=== PATIENT | female | born 1960 | race Caucasian/White ===

== ENCOUNTER 2017-04-30 23:11 | Emergency (ER) | payer BC ==
--- NOTE | 2017-04-30 23:32 | EDM.PDOC ---
ED HPI GENERAL MEDICAL PROBLEM - General Chief Complaint: General Stated Complaint: back pain Time Seen by Provider: 04/30/17 23:25 Source of Information: Reports: Patient, Family (), Old Records ([facility] chart/EMR) History Limitations: Reports: No Limitations - History of Present Illness INITIAL COMMENTS - FREE TEXT/NARRATIVE: Patient was brought to the emergency room via private automobile by her for evaluation of persistent refractory bilateral lower lumbar back pain with symptoms initially starting at about 6 AM on 04/28/17. She was seen by her regular provider, Marley Gill PA-C, at [facility] in [place], earlier this afternoon with no additional medications prescribed, however x- rays were ordered as below. Patient did take ibuprofen earlier this morning with no relief with last dose of ibuprofen 600 mg at 22:00 hours and 1 tablet of Ultram at 18:30 hours. She has had worsening back pain-type problems since March with no history of acute injury. Her pain initially started on the left side and now is present bilaterally with some radiation of her left-sided back pain to the left popliteal region. No history of paresthesias, neurological deficits, or other current complaints. No recent history of abdominal pain, heartburn, nausea, diarrhea, melena, gross hematochezia, or any food intolerance , including fatty foods, etc.. The patient also denies any recent fever, cough, wheezing, dyspnea, etc.. The patient did see her chiropractor yesterday, however symptoms have worsened since that time. Onset: Gradual Onset Date: 04/28/17 Onset Time: 06:00 Duration: Constant, Getting Worse Location: Reports: Back, Lower Extremity, Left, Radiates to (As above). 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, Other Medication(s) (As above) lower back pain Pain Score (Numeric/FACES): 10 - Related Data Allergies Allergy/AdvReac Type Severity Reaction Status Date / Time fentanyl Allergy Nausea Verified 04/30/17 23:20 hydrocodone Allergy Nausea Verified 04/30/17 23:20 meperidine HCl [From Demerol] Allergy Anaphylactic Verified 04/30/17 23:20 Shock Sulfa (Sulfonamide Allergy Nausea and Verified 04/30/17 23:20 Antibiotics) Vomiting Home Meds: Home Meds Ibuprofen 600 mg PO Q6H PRN 11/04/14 [History] Cyclobenzaprine [Flexeril] 10 mg PO TID PRN #30 tablet 04/30/17 [Rx] traMADol [Ultram] 50 mg PO Q4HR 04/30/17 [History] Past Medical History HEENT History: Reports: Impaired Vision, Other (See Below) Other HEENT History: Patient wears glasses Cardiovascular History: Reports: Blood Clots/VTE/DVT Respiratory History: Reports: Asthma, COPD, Intubation, Previous Gastrointestinal History: Reports: Cholelithiasis 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 - Past Surgical History GI Surgical History: Reports: Cholecystectomy Female Surgical History: Reports: Hysterectomy, Salpingo-Oophorectomy, Other (See Below) Other Female Surgeries/Procedures: Complete hysterectomy secondary to dysfunctional uterine bleeding and uterine fibroids Musculoskeletal Surgical History: Reports: Knee Replacement, Other (See Below) Other Musculoskeletal Surgeries/Procedures:: Bilateral total knee arthroplasty Social & Family History - Tobacco Use Smoking Status *Q: Never Smoker Smoking Cessation Information Provided To Patient: No Second Hand Smoke Exposure: No Second Hand Smoke Education Provided: No - Alcohol Use Days Per Week of Alcohol Use: 0 - Recreational Drug Use Recreational Drug Use: No - Living Situation & Occupation Living situation: Reports: , with Family 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 ED EXAM, GENERAL - Physical Exam Exam: See Below Exam Limited By: No Limitations General Appearance: Alert, WD/WN, No Apparent Distress, Anxious (Mild) Head: Atraumatic, Normocephalic Neck: Normal Inspection, Supple, Non-Tender, Full Range of Motion. No: Lymphadenopathy (L), Lymphadenopathy (R), Thyromegaly Respiratory/Chest: No Respiratory Distress, Lungs Clear, Normal Breath Sounds, No Accessory Muscle Use, Chest Non-Tender. No: Rales, Pleural Rub, Retractions Cardiovascular: Normal Peripheral Pulses, Regular Rate, Rhythm, No Edema, No Gallop, No JVD, No Murmur, No Rub. No: Gallop/S3, Gallop/S4, Friction Rub Peripheral Pulses: 4+: Radial (L), Radial (R), Dorsalis Pedis (L), Dorsalis Pedis (R) GI/Abdominal: Normal Bowel Sounds, Soft, Non-Tender, No Organomegaly, No Distention, No Abnormal Bruit, No Mass. No: Guarding (Female) Exam: Deferred Rectal (Female) Exam: Deferred Back Exam: Decreased Range of Motion (Secondary to discomfort), Muscle Spasm ( Moderate bilateral lumbar), Paraspinal Tenderness (Moderate bilateral mid lumbar ). No: CVA Tenderness (L), CVA Tenderness (R), Vertebral Tenderness Extremities: Normal Inspection, Normal Range of Motion, Non-Tender, No Pedal Edema, Normal Capillary Refill. No: Jim's Sign Neurological: Alert, Oriented, CN II-XII Intact, Normal Cognition, Normal Gait, Normal Reflexes (Negative Babinski's), No Motor/Sensory Deficits Psychiatric: Anxious (Mild). No: Depressed Mood Skin Exam: Warm, Dry, Intact, Normal Color, No Rash. No: Ecchymosis, Petechiae , Wound/Incision Lymphatic: No Adenopathy Course - Vital Signs Last Recorded V/S: Last Vital Signs Temp 36.4 C 04/30/17 23:14 Pulse 67 04/30/17 23:14 Resp 16 04/30/17 23:14 BP 145/65 H 04/30/17 23:33 Pulse Ox 100 04/30/17 23:14 - Orders/Labs/Meds Orders: Active Orders 24 hr Category Date Time Status Obtain Past Medical Record [OM.PC] Routine Oth 04/30/17 23:34 Active Meds: Medications Discontinued Medications Generic Name Dose Route Start Last Admin Trade Name Freq PRN Reason Stop Dose Admin Diazepam 10 mg 04/30/17 23:33 04/30/17 23:40 Valium IM 04/30/17 23:34 10 mg ONETIME ONE Administration Methylprednisolone Acetate 80 mg 04/30/17 23:33 04/30/17 23:40 Depo-Medrol IM 04/30/17 23:34 80 mg ONETIME ONE Administration - Radiology Interpretation Free Text/Narrative:: X-rays of the lumbar spine, 2 views, which were ordered by the patient's regular provider, Marley Gill PA-C, at [facility] in [place], [facility] today were reviewed with evidence of mild osteoarthritic changes but no fracture, dislocation, etc. 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 in the high 50s with otherwise normal sinus rhythm with average heart rate in the 60s with no other ectopy or arrhythmia Departure - Departure Time of Disposition: 00:05 Disposition: Home, Self-Care 01 Condition: Good Clinical Impression: Bradycardia Low back pain Qualifiers: Chronicity: acute Back pain laterality: bilateral Sciatica presence: with sciatica Sciatica laterality: sciatica of left side Qualified Code(s): M54.42 - Lumbago with sciatica, left side Osteoarthritis Qualifiers: Osteoarthritis location: multiple joints Osteoarthritis type: primary Qualified Code(s): M15.0 - Primary generalized (osteo)arthritis - Discharge Information Prescriptions: Cyclobenzaprine [Flexeril] 10 mg PO TID PRN #30 tablet PRN Reason: Spasms Instructions: Diazepam injection, Methylprednisolone Solution for Injection, Back Pain, Adult, [id number] Referrals: Marley Doss PA-C [Primary Care Provider] - Forms: ED Department Discharge, ED Return to Work/School Form Additional Instructions: 1. Follow up with your regular provider in 10-14 days as needed, if symptoms persist. 2. Tylenol 650 mg by mouth every 4 hours and/or OTC ibuprofen 2-3 tabs by mouth every 6 hours with food as directed./needed. 3. BenGay or equivalent, heating pad, and/or ice packs as directed. 4. Work excuse- See Form 5. Sedation precautions with no driving, etc. for 18 hours because of emergency room medications. 6. Dry mouth, confusion, sedation precautions with Flexeril as discussed - Problem List & Annotations (1) Low back pain SNOMED Code(s): 162238877 Code(s): M54.5 - LOW BACK PAIN Status: Acute Priority: High Current Visit: Yes Onset Date: ~04/28/17 Annotation/Comment:: Work excuse provided. Symptomatic relief as per discharge instructions. Continue to observe symptoms closely by her regular provider with consideration of further workup including CT versus MRI of the lumbar spine, physical therapy referral, etc. depending on her clinical course. IM Depo-Medrol and IM diazepam given in the emergency room with initiation of Flexeril therapy in the a.m. Sedation, precautions given Qualifiers: Chronicity: acute Back pain laterality: bilateral Sciatica presence: with sciatica Sciatica laterality: sciatica of left side Qualified Code(s): M54.42 - Lumbago with sciatica, left side (2) Osteoarthritis SNOMED Code(s): 437755787 Code(s): M19.90 - UNSPECIFIED OSTEOARTHRITIS, UNSPECIFIED SITE Status: Chronic Priority: Medium Current Visit: Yes Annotation/Comment:: Otherwise stable by history Qualifiers: Osteoarthritis location: multiple joints Osteoarthritis type: primary Qualified Code(s): M15.0 - Primary generalized (osteo)arthritis (3) Bradycardia SNOMED Code(s): 77455984 Code(s): R00.1 - BRADYCARDIA, UNSPECIFIED Status: Acute Priority: Medium Current Visit: Yes Onset Date: 05/01/17 Annotation/Comment:: Newly diagnosed with no current beta holly, etc. therapy. Nonsymptomatic. Observe for now - Problem List Review Problem List Initiated/Reviewed/Updated: Yes - My Orders Last 24 Hours: My Active Orders 04/30/17 23:34 Obtain Past Medical Record [OM.PC] Routine - Assessment/Plan Last 24 Hours: My Active Orders 04/30/17 23:34 Obtain Past Medical Record [OM.PC] Routine Assessment:: As above Plan: As above. Extensive precautions were given to the patient and her , who are in agreement with the treatment plan. See Patient Instructions for further treatment and plan.
[2017-04-30] MEDS ORDERED: methylPREDNISolone Acetate 80 MG/ML SDV IM ONE (23:33)
[2017-04-30 23:52] VITALS: BP 145/65
== END 2017-05-01 00:05 | disposition home or self-care (01) ==
LOC: LL.ED 23:11
DX: M54.42 Lumbago with sciatica, left side (principal); R00.1 Bradycardia, unspecified; M15.0 Primary generalized (osteo)arthritis; H54.7 Unspecified visual loss; J44.9 Chronic obstructive pulmonary disease, unspecified; Z90.49 Acquired absence of other specified parts of digestive tract; Z88.8 Allergy status to other drugs, medicaments and biological substances; Z88.5 Allergy status to narcotic agent; Z88.2 Allergy status to sulfonamides; Z90.710 Acquired absence of both cervix and uterus
CPT/HCPCS: 96372; 99283; J1040; J3360

== ENCOUNTER 2017-05-06 15:26 | Emergency (ER) | payer BC ==
--- NOTE | 2017-05-06 15:35 | EDM.PDOC ---
ED HPI GENERAL MEDICAL PROBLEM - General Chief Complaint: Back Pain or Injury Stated Complaint: Back pain/Leg Pain Time Seen by Provider: 05/06/17 15:30 Source of Information: Reports: Patient History Limitations: Reports: No Limitations - History of Present Illness INITIAL COMMENTS - FREE TEXT/NARRATIVE: Patient is a 57-year-old who seen with chief complaint of lower back pain radiating down her lleft leg states she fell off a ladder back in September patient's had MRI Onset: Gradual Duration: Chronic, Getting Worse Location: Reports: Back Quality: Reports: Sharp, Other (Constant) Severity: Moderate Improves with: Reports: None Worsens with: Reports: Movement Context: Reports: Trauma Associated Symptoms: Reports: No Other Symptoms Lower Back Pain Score (Numeric/FACES): 6 - Related Data Allergies Allergy/AdvReac Type Severity Reaction Status Date / Time fentanyl Allergy Airway Verified 05/06/17 15:56 Tightness hydrocodone Allergy Nausea Verified 05/06/17 15:39 meperidine HCl [From Demerol] Allergy Anaphylactic Verified 05/06/17 15:39 Shock Sulfa (Sulfonamide Allergy Nausea and Verified 05/06/17 15:39 Antibiotics) Vomiting Home Meds: Home Meds Ibuprofen 600 mg PO Q6H PRN 11/04/14 [History] traMADol [Ultram] 50 mg PO Q4HR 04/30/17 [History] Acetaminophen [Acetaminophen Extra Strength] 1,000 mg PO Q6HR PRN 05/06/17 [ History] Cyclobenzaprine [Flexeril] 5 mg PO TID PRN 05/06/17 [History] Past Medical History HEENT History: Reports: Impaired Vision, Other (See Below) Other HEENT History: Patient wears glasses Cardiovascular History: Reports: Blood Clots/VTE/DVT Respiratory History: Reports: Asthma, COPD, Intubation, Previous Gastrointestinal History: Reports: Cholelithiasis 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 - Past Surgical History GI Surgical History: Reports: Cholecystectomy Female Surgical History: Reports: Hysterectomy, Salpingo-Oophorectomy, Other (See Below) Other Female Surgeries/Procedures: Complete hysterectomy secondary to dysfunctional uterine bleeding and uterine fibroids Musculoskeletal Surgical History: Reports: Knee Replacement, Other (See Below) Other Musculoskeletal Surgeries/Procedures:: Bilateral total knee arthroplasty Social & Family History - Tobacco Use Smoking Status *Q: Never Smoker Second Hand Smoke Exposure: No - Caffeine Use Caffeine Use: Reports: None - Alcohol Use Days Per Week of Alcohol Use: 0 - Recreational Drug Use Recreational Drug Use: No - Living Situation & Occupation Living situation: Reports: , with Family 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[employer], 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 GENERAL - Review of Systems Review Of Systems: See Below Constitutional: Reports: Other (Constant lower back pain) HEENT: Reports: No Symptoms Respiratory: Reports: No Symptoms Cardiovascular: Reports: No Symptoms Endocrine: Reports: No Symptoms GI/Abdominal: Reports: No Symptoms : Reports: No Symptoms Musculoskeletal: Reports: No Symptoms Skin: Reports: No Symptoms Neurological: Reports: Difficulty Walking Psychiatric: Reports: No Symptoms ED EXAM, GENERAL - Physical Exam Exam: See Below Exam Limited By: No Limitations General Appearance: Alert, WD/WN, No Apparent Distress, Moderate Distress Ears: Normal External Exam, Normal Canal, Hearing Grossly Normal, Normal TMs Ear Exam: Bilateral Ear: Auricle Normal, Canal Normal, TM normal Nose: Normal Inspection, Normal Mucosa, No Blood Throat/Mouth: Normal Inspection, Normal Lips, Normal Teeth, Normal Gums, Normal Oropharynx, Normal Voice, No Airway Compromise Head: Atraumatic, Normocephalic Neck: Normal Inspection, Supple, Non-Tender, Full Range of Motion Respiratory/Chest: No Respiratory Distress, Lungs Clear, Normal Breath Sounds, No Accessory Muscle Use, Chest Non-Tender Cardiovascular: Normal Peripheral Pulses, Regular Rate, Rhythm, No Edema, No Gallop, No JVD, No Murmur, No Rub GI/Abdominal: Normal Bowel Sounds, Soft, Non-Tender, No Organomegaly, No Distention, No Abnormal Bruit, No Mass Back Exam: Decreased Range of Motion, Other (Radiating down left leg) Extremities: Normal Inspection, Normal Range of Motion, Non-Tender, No Pedal Edema, Normal Capillary Refill, Leg Pain. No: Jim's Sign Neurological: Alert, Oriented, CN II-XII Intact, Normal Cognition, Normal Gait, Normal Reflexes, No Motor/Sensory Deficits Psychiatric: Normal Affect, Tearful, Other (Secondary to low back pain) Skin Exam: Warm, Dry, Intact, Normal Color, No Rash Lymphatic: No Adenopathy Course - Vital Signs Last Recorded V/S: Last Vital Signs Temp 98.6 F 05/06/17 15:42 Pulse 70 05/06/17 15:42 Resp 20 05/06/17 15:42 BP 147/82 H 05/06/17 15:42 Pulse Ox 99 05/06/17 15:42 - Orders/Labs/Meds Orders: Active Orders 24 hr Category Date Time Status Communication Order [RC] PER UNIT ROUTINE Care 05/06/17 15:52 Active Labs: Laboratory Tests 05/06/17 05/06/17 05/06/17 Range/Units 15:40 15:40 15:40 WBC 10.0 (4.0-10.2) K/uL RBC 4.90 (3.77-5.09) M/uL Hgb 14.9 (11.7-15.5) g/dL Hct 42.0 (34.0-46.0) % MCV 85.7 (84.0-98.0) fL MCH 30.4 (28.2-33.3) pg MCHC 35.5 (31.7-36.0) g/dL RDW 13.4 (11.2-14.1) % Plt Count 278 (150-350) K/uL Neut % (Auto) 64.1 (45.0-80.0) % Lymph % (Auto) 26.8 (10.0-50.0) % [place] % (Auto) 7.9 (2.0-14.0) % Eos % (Auto) 0.8 (0.0-5.0) % Baso % (Auto) 0.4 (0.0-2.0) % Neut # (Auto) 6.39 (1.40-7.00) K/uL Lymph # (Auto) 2.67 (0.50-3.50) K/uL [place] # (Auto) 0.79 (0.00-1.00) K/uL Eos # (Auto) 0.08 (0.00-0.50) K/uL Baso # (Auto) 0.04 (0.00-0.20) K/uL D-Dimer, Quantitative 210 (0-400) ng/mL Sodium 140 (136-145) mmol/L Potassium 4.3 (3.5-5.1) mmol/L Chloride 103 (98-107) mmol/L Carbon Dioxide 26.8 (21.0-32.0) mmol/L BUN 23 H (7-18) mg/dL Creatinine 0.94 (0.51-1.17) mg/dL Est Cr Clr Drug Dosing 58.39 mL/min Estimated GFR (MDRD) > 60 mL/min Glucose 89 (74-106) mg/dL Calcium 10.1 (8.5-10.1) mg/dL Meds: Medications Discontinued Medications Generic Name Dose Route Start Last Admin Trade Name Freq PRN Reason Stop Dose Admin Hydrocodone Bitart/Acetaminophen 1 tab 05/06/17 15:55 05/06/17 16:09 [place] 325-5 Mg PO 05/06/17 15:56 1 tab ONETIME ONE Administration Diazepam 10 mg 05/06/17 15:53 05/06/17 16:10 Valium IM 05/06/17 15:54 10 mg ONETIME ONE Administration Ondansetron HCl 4 mg 05/06/17 15:51 05/06/17 16:09 Zofran Odt PO 05/06/17 15:52 4 mg ONETIME ONE Administration Sodium Chloride 10 ml 05/06/17 16:00 Saline Flush FLUSH ASDIRECTED PRN Keep Vein Open Departure - Departure Time of Disposition: 17:11 Disposition: Home, Self-Care 01 Clinical Impression: Lumbar degenerative disc disease, Severe lumbar pain - Discharge Information Instructions: Diazepam injection Referrals: Marley Doss PA-C [Primary Care Provider] - Forms: ED Department Discharge Additional Instructions: Dr. Barber's office will notify you of date and time of appointment for back injections - My Orders Last 24 Hours: My Active Orders 05/06/17 15:52 Communication Order [RC] PER UNIT ROUTINE - Assessment/Plan Last 24 Hours: My Active Orders 05/06/17 15:52 Communication Order [RC] PER UNIT ROUTINE Plan: Referred to Dr. Banerjee for back injections
[2017-05-06 15:44] VITALS: BP 147/82
[2017-05-06] MEDS ORDERED: Ondansetron 4 MG Tab.DIS PO ONE (15:51)
[2017-05-06] MEDS ORDERED: Acetaminophen/HYDROcodone 325-5 MG Tab PO ONE (15:55)
[2017-05-06] MEDS ORDERED: Sodium Chloride 0.9% 10 ML Syringe FLUSH PRN (16:00)
[2017-05-06 16:24] LABS: CHLORIDE,CL 103 mmol/L (98-107); SODIUM,NA 140 mmol/L (136-145)
== END 2017-05-06 17:11 | disposition home or self-care (01) ==
LOC: LL.ED 15:26
DX: M51.36 Other intervertebral disc degeneration, lumbar region (principal); M19.90 Unspecified osteoarthritis, unspecified site; J44.9 Chronic obstructive pulmonary disease, unspecified; Z86.79 Personal history of other diseases of the circulatory system; Z86.2 Personal history of diseases of the blood and blood-forming organs and certain disorders involving the immune mechanism; Z90.49 Acquired absence of other specified parts of digestive tract; Z90.710 Acquired absence of both cervix and uterus; Z96.653 Presence of artificial knee joint, bilateral; Z86.718 Personal history of other venous thrombosis and embolism; Z88.1 Allergy status to other antibiotic agents; Z88.2 Allergy status to sulfonamides; Z88.5 Allergy status to narcotic agent; Z88.6 Allergy status to analgesic agent
CPT/HCPCS: 36415; 80048; 85025; 85379; 96372; 99284; A9270; J3360

== ENCOUNTER 2017-10-11 08:55 | Emergency (ER) | payer BC ==
[2017-10-11 09:07] VITALS: BP 129/69
[2017-10-11] MEDS ORDERED: GI Cocktail Oral Solution 30 ML PO ONE (09:23)
[2017-10-11 09:52] LABS: CHLORIDE,CL 105 mmol/L (98-107); SODIUM,NA 141 mmol/L (136-145)
--- NOTE | 2017-10-11 12:02 | EDM.PDOC ---
ED HPI GENERAL MEDICAL PROBLEM - General Chief Complaint: General Stated Complaint: Stomach pain, back pain Time Seen by Provider: 10/11/17 09:21 Source of Information: Reports: Patient History Limitations: Reports: No Limitations - History of Present Illness INITIAL COMMENTS - FREE TEXT/NARRATIVE: Patient here with complaint of abdominal and back pain. Pain started two days ago. Noticed increased frequency of stool on . This stopped on the second day (Friday). Had some hot flashes and chills yesterday (Friday). Has not had that today. Nausea present. No emesis. No bloody stools/constipation/ diarrhea today. Hx of diverticulosis/diverticulitis and kidney stones. Says that this does NOT feel like either of those. No URI complaints. Denies UTI symptoms. Pain comes/goes, sometimes improves after eating. Hard to sleep at night, sleeps propped upwards for comfort. Recent huge increase in stress as daughter was murdered recently. No other reported changes. Nothing else seems to trigger or improve the pain when it is present. 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 Abdomen Pain Score (Numeric/FACES): 8 - Related Data Allergies Allergy/AdvReac Type Severity Reaction Status Date / Time fentanyl Allergy Airway Verified 10/11/17 12:00 Tightness hydrocodone Allergy Nausea Verified 10/11/17 12:00 meperidine HCl [From Demerol] Allergy Anaphylactic Verified 10/11/17 12:00 Shock Sulfa (Sulfonamide Allergy Nausea and Verified 10/11/17 12:00 Antibiotics) Vomiting Home Meds: Home Meds Ibuprofen 600 mg PO Q6H PRN 11/04/14 [History] Acetaminophen [Acetaminophen Extra Strength] 1,000 mg PO Q6HR PRN 05/06/17 [ History] Calcium Carbonate [Tums] 300 mg PO ASDIRECTED PRN 10/11/17 [History] LORazepam 0.5 mg PO BEDTIME PRN 10/11/17 [History] Omeprazole [priLOSEC OTC] 20 mg PO DAILY PRN 10/11/17 [History] Past Medical History HEENT History: Reports: Impaired Vision, Other (See Below) Other HEENT History: Patient wears glasses Cardiovascular History: Reports: Blood Clots/VTE/DVT Respiratory History: Reports: Asthma, COPD, Intubation, Previous Gastrointestinal History: Reports: Cholelithiasis 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: Reports: Dysfunctional Uterine Bleeding, Fibroids Musculoskeletal History: Reports: Arthritis, Back Pain, Chronic, Neck Pain, Chronic, Osteoarthritis, Other (See Below) Other Musculoskeletal History: Sarcoidosis Hematologic History: Reports: Anemia, Other (See Below) Other Hematologic History: 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 - Past Surgical History GI Surgical History: Reports: Cholecystectomy Female Surgical History: Reports: Hysterectomy, Salpingo-Oophorectomy, Other (See Below) Other Female Surgeries/Procedures: Complete hysterectomy secondary to dysfunctional uterine bleeding and uterine fibroids Musculoskeletal Surgical History: Reports: Knee Replacement, Other (See Below) Other Musculoskeletal Surgeries/Procedures:: Bilateral total knee arthroplasty Social & Family History - Tobacco Use Smoking Status *Q: Never Smoker Second Hand Smoke Exposure: No - Caffeine Use Caffeine Use: Reports: None - Alcohol Use Days Per Week of Alcohol Use: 0 - Recreational Drug Use Recreational Drug Use: No - Living Situation & Occupation Living situation: Reports: , with Family 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 Denies: Fever , Weakness, Fatigue, Diaphoresis, Weight Loss, Weight Gain HEENT: Reports: No Symptoms Respiratory: Reports: No Symptoms Cardiovascular: Reports: No Symptoms. Denies: Chest Pain, Dyspnea on Exertion, Lightheadedness GI/Abdominal: Reports: Abdominal Pain, Diarrhea (looser stools/more frequent two days ago but not overt diarrhea), Nausea. Denies: Black Stool, Bloody Stool , Constipation, Distension, Hematemesis, Hematochezia, Melena, Vomiting : Reports: No Symptoms Musculoskeletal: Reports: No Symptoms Skin: Reports: No Symptoms Neurological: Reports: No Symptoms Psychiatric: Reports: No Symptoms Hematologic/Lymphatic: Reports: No Symptoms ED EXAM, GENERAL - Physical Exam Exam: See Below Exam Limited By: No Limitations General Appearance: Alert, WD/WN, No Apparent Distress Eye Exam: Bilateral Eye: EOMI, Normal Inspection Ears: Normal External Exam, Normal Canal, Hearing Grossly Normal Nose: Normal Inspection Throat/Mouth: Normal Inspection, Normal Lips, Normal Oropharynx, Normal Voice, No Airway Compromise Head: Atraumatic, Normocephalic Neck: Normal Inspection, Supple, Non-Tender, Full Range of Motion. No: Lymphadenopathy (L), Lymphadenopathy (R) Respiratory/Chest: No Respiratory Distress, Lungs Clear, Normal Breath Sounds, No Accessory Muscle Use, Chest Non-Tender Cardiovascular: Normal Peripheral Pulses, Regular Rate, Rhythm, No Edema, No Murmur Peripheral Pulses: 2+: Radial (L), Radial (R) GI/Abdominal: Normal Bowel Sounds, Soft, No Distention, Tender (diffusely, more so upper mid abdomen). No: Guarding, Rigid, Rebound (Female) Exam: Deferred Rectal (Female) Exam: Deferred Back Exam: Normal Inspection. No: CVA Tenderness (L), CVA Tenderness (R), Muscle Spasm, Paraspinal Tenderness, Vertebral Tenderness Extremities: Normal Inspection, Normal Range of Motion, Non-Tender, No Pedal Edema, Normal Capillary Refill Neurological: Alert, Oriented, Normal Cognition, Normal Gait, No Motor/Sensory Deficits Psychiatric: Normal Affect, Normal Mood Skin Exam: Warm, Dry, Intact, Normal Color EKG INTERPRETATION EKG Date: 10/11/17 Time: 09:49 Rhythm: Other (sinus bradycardia) Rate (Beats/Min): 55 [place]: Normal P-Wave: Present QRS: Normal ST-T: Normal QT: Normal Comparison: NA - No Prior EKG EKG Interpretation Comments: Has been noted to have heart rate in 50s during past visits. Flipped T in V3 Course - Vital Signs Last Recorded V/S: Last Vital Signs Temp 36.4 C 10/11/17 08:56 Pulse 59 L 10/11/17 08:56 Resp 16 10/11/17 08:56 BP 129/69 10/11/17 08:56 Pulse Ox 100 10/11/17 08:56 - Orders/Labs/Meds Orders: Active Orders 24 hr Category Date Time Status EKG Documentation Completion [RC] ASDIRECTED Care 10/11/17 09:22 Active Abdomen Pelvis wo Cont [CT] Stat Exams 10/11/17 10:02 Taken H PYLORI STOOL ANTIGEN [MREF] Stat Lab 10/11/17 11:19 Ordered Labs: Laboratory Tests 10/11/17 10/11/17 10/11/17 Range/Units 09:30 09:30 10:10 WBC 5.7 (4.0-10.2) K/uL RBC 4.68 (3.77-5.09) M/uL Hgb 14.4 (11.7-15.5) g/dL Hct 40.7 (34.0-46.0) % MCV 87.0 (84.0-98.0) fL MCH 30.8 (28.2-33.3) pg MCHC 35.4 (31.7-36.0) g/dL RDW 13.5 (11.2-14.1) % Plt Count 225 (150-350) K/uL Neut % (Auto) 56.3 (45.0-80.0) % Lymph % (Auto) 31.9 (10.0-50.0) % [place] % (Auto) 7.8 (2.0-14.0) % Eos % (Auto) 3.3 (0.0-5.0) % Baso % (Auto) 0.7 (0.0-2.0) % Neut # (Auto) 3.23 (1.40-7.00) K/uL Lymph # (Auto) 1.83 (0.50-3.50) K/uL [place] # (Auto) 0.45 (0.00-1.00) K/uL Eos # (Auto) 0.19 (0.00-0.50) K/uL Baso # (Auto) 0.04 (0.00-0.20) K/uL Sodium 141 (136-145) mmol/L Potassium 3.8 (3.5-5.1) mmol/L Chloride 105 (98-107) mmol/L Carbon Dioxide 27.3 (21.0-32.0) mmol/L BUN 14 (7-18) mg/dL Creatinine 0.87 (0.51-1.17) mg/dL Est Cr Clr Drug Dosing 57.79 mL/min Estimated GFR (MDRD) > 60 mL/min Glucose 99 (74-106) mg/dL Calcium 9.2 (8.5-10.1) mg/dL Total Bilirubin 1.3 H (0.2-1.0) mg/dL AST 24 (15-37) U/L ALT 40 (12-78) U/L Alkaline Phosphatase 95 (46-116) IU/L Troponin I 0.000 (0.000-0.056) ng/mL Total Protein 7.3 (6.4-8.2) g/dL Albumin 4.1 (3.4-5.0) g/dL Specimen Type Urinvoid Urine Color Yellow Urine Appearance Clear Urine pH 7.5 (5.0-9.0) Ur Specific [place] 1.015 (1.005-1.030) Urine Protein Negative (NEGATIVE) mg/dL Urine Glucose (UA) Negative (NEGATIVE) mg/dL Urine Ketones Trace H (NEGATIVE) mg/dL Urine Occult Blood Moderate H (NEGATIVE) Urine Nitrite Negative (NEGATIVE) Urine Bilirubin Negative (NEGATIVE) Urine Urobilinogen 1.0 (0.2-1.0) E.U./dL Ur Leukocyte Esterase Negative (NEGATIVE) Urine RBC 5-10 H /HPF Urine WBC 0-5 /HPF Ur Epithelial Cells Moderate H /LPF Urine Bacteria Few (NONE TO FEW) /HPF Meds: Medications Discontinued Medications Generic Name Dose Route Start Last Admin Trade Name Freq PRN Reason Stop Dose Admin Al Hydroxide/Mg Hydroxide 30 ml 10/11/17 09:23 10/11/17 09:37 Gi Cocktail PO 10/11/17 09:24 30 ml ONETIME ONE Administration - Radiology Interpretation Free Text/Narrative:: CT exam did not show obstructions/stones/diverticulitis. CT Results Date: 10/11/17 CT Results Time: 11:37 (patient has kidney stones in both kidneys. No sign of stone in ureter or obstruction of ureter. Diverticulosis present but no diverticulitis.) - Re-Assessments/Exams Free Text/Narrative Re-Assessment/Exam: 10/11/17 14:26 CT and labs overall unremarkable. Patient did have improvement of epigastric discomfort with GI cocktail. Will recommend HPylorie testing as well as routine guiac stool testing. Suspect gastritis/GI source of pain. Recent increased anxiety with of daughter likely contributing. Cannot rule out possible ulcer being present. May need referral to GI for further evaluation. Consider viral cause given looser stools two days ago as well as chills yesterday. Kidney stone/diverticulosis felt unlikely at this time. Conservative treatment for now. Will increase patient's Prilosec to twice daily. Discussed elimination diet to avoid foods that most commonly contribute to inflammation and GI distress. Patient is to look for other symptoms developing that may suggest this is viral gastroenteritis. She is to follow up as needed pending course of symptoms. Departure - Departure Time of Disposition: 11:59 Disposition: Home, Self-Care 01 Condition: Good Clinical Impression: Abdominal pain Qualifiers: Abdominal location: generalized Qualified Code(s): R10.84 - Generalized abdominal pain - Discharge Information Instructions: Heartburn, [id number] Referrals: Marley Doss PA-C [Primary Care Provider] - Forms: ED Department Discharge Additional Instructions: Take 20mg Prilosec twice daily for the next 2 weeks. See if symptoms change or if they improve/worsen. Follow up as needed depending on course. Stool samples for Hpylorie and occult blood screens. Follow up with primary provider next week. - My Orders Last 24 Hours: My Active Orders 10/11/17 09:22 EKG Documentation Completion [RC] ASDIRECTED 10/11/17 10:02 Abdomen Pelvis wo Cont [CT] Stat 10/11/17 11:19 H PYLORI STOOL ANTIGEN [MREF] Stat - Assessment/Plan Last 24 Hours: My Active Orders 10/11/17 09:22 EKG Documentation Completion [RC] ASDIRECTED 10/11/17 10:02 Abdomen Pelvis wo Cont [CT] Stat 10/11/17 11:19 H PYLORI STOOL ANTIGEN [MREF] Stat
== END 2017-10-11 12:13 | disposition home or self-care (01) ==
LOC: LL.ED 08:55
DX: R10.84 Generalized abdominal pain (principal); N20.0 Calculus of kidney; Z88.5 Allergy status to narcotic agent; Z88.8 Allergy status to other drugs, medicaments and biological substances; Z88.2 Allergy status to sulfonamides; Z79.899 Other long term (current) drug therapy; Z90.49 Acquired absence of other specified parts of digestive tract; Z90.710 Acquired absence of both cervix and uterus
CPT/HCPCS: 36415; 74176; 80053; 81001; 84484; 85025; 93005; 99284; A9270

== ENCOUNTER 2018-03-10 07:58 | Emergency (ER) | payer BC ==
[2018-03-10 08:20] VITALS: BP 145/79
[2018-03-10] MEDS ORDERED: Pantoprazole 40 MG Vial IVPUSH ONE (08:31)
[2018-03-10] MEDS ORDERED: Famotidine 20 MG/2 ML SDV IVPUSH ONE (08:31)
[2018-03-10] MEDS ORDERED: Sodium Chloride 0.9% 10 ML Syringe FLUSH PRN (08:31)
[2018-03-10] MEDS ORDERED: Lactated Ringers 1,000 ML IV ONE (08:31)
[2018-03-10] MEDS ORDERED: Ondansetron 4 MG/2 ML SDV IVPUSH ONE (08:31)
--- NOTE | 2018-03-10 08:31 | EDM.PDOC ---
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 08:43 CULTURE BLOOD [BC] Stat 03/10/18 08:54 Abdomen Pelvis wo Cont [CT] Stat 03/10/18 09:00 CULTURE URINE [RM] Stat UA W/MICROSCOPIC [URIN] Stat 03/10/18 09:14 CULTURE BLOOD [BC] Stat Assessment:: As above Plan: As above. Extensive precautions were given to the patient, who is in agreement with the treatment plan. See Patient Instructions for further treatment and plan.
[2018-03-10] MEDS ORDERED: Ketorolac 30 MG/ML SDV IVPUSH ONE (08:34)
[2018-03-10] MEDS ORDERED: Tamsulosin 0.4 MG Cap.ER PO ONE (08:35)
[2018-03-10 09:16] LABS: CHLORIDE,CL 105 mmol/L (98-107); SODIUM,NA 140 mmol/L (136-145)
== END 2018-03-10 10:39 | disposition home or self-care (01) ==
LOC: LL.ED 07:58
DX: K57.92 Diverticulitis of intestine, part unspecified, without perforation or abscess without bleeding (principal); D86.9 Sarcoidosis, unspecified; K21.9 Gastro-esophageal reflux disease without esophagitis; F41.8 Other specified anxiety disorders; N21.0 Calculus in bladder; M15.0 Primary generalized (osteo)arthritis; J44.9 Chronic obstructive pulmonary disease, unspecified; Z88.5 Allergy status to narcotic agent; Z88.8 Allergy status to other drugs, medicaments and biological substances; Z88.2 Allergy status to sulfonamides
CPT/HCPCS: 36415; 74176; 80053; 81001; 82150; 83605; 83690; 83735; 84550; 85025; 85610; 85730; 87040; 87086; 96361; 96374; 96375; 99285; A9270; C9113; J1885; J2405; J3490; J7050; J7120

== ENCOUNTER 2018-05-13 12:15 | Emergency (ER) | payer BC, OTHER ==
[2018-05-13] MEDS ORDERED: Bupivacaine 0.5% 10 ML SDV INJECT ONE (12:51)
[2018-05-13] MEDS ORDERED: Ketorolac 10 MG Tab PO ONE (13:05)
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
[2018-05-13 13:28] VITALS: BP 131/82
== END 2018-05-13 13:40 | disposition home or self-care (01) ==
LOC: LL.ED 12:15
DX: S60.042A Contusion of left ring finger without damage to nail, initial encounter (principal); Z88.8 Allergy status to other drugs, medicaments and biological substances; Z88.5 Allergy status to narcotic agent; Z88.2 Allergy status to sulfonamides; W23.1XXA Caught, crushed, jammed, or pinched between stationary objects, initial encounter; Y99.0 Civilian activity done for income or pay
CPT/HCPCS: 64450; 73140-F3; 99283; A9270-GY; J3490

== ENCOUNTER 2021-03-08 20:25 | Emergency (ER) | payer BC ==
[2021-03-08 20:40] VITALS: PULSE 71
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
[2021-03-08 21:11] LABS: ANION GAP 9.2 meq/L (7-15)
[2021-03-08] MEDS: Ciprofloxacin 500 MG Tab PO ONE (21:27)
[2021-03-08] MEDS: metroNIDAZOLE 500 MG Tab PO ONE (21:27)
[2021-03-08] MEDS: Dicyclomine 20 MG Tab PO ONE (21:27)
[2021-03-08 23:03] VITALS: BP 129/59
== END 2021-03-08 21:58 | disposition home or self-care (01) ==
LOC: LL.ED 20:25
DX: R10.32 Left lower quadrant pain (principal); R10.84 Generalized abdominal pain; I25.10 Atherosclerotic heart disease of native coronary artery without angina pectoris; J44.9 Chronic obstructive pulmonary disease, unspecified; Z88.2 Allergy status to sulfonamides; Z91.018 Allergy to other foods; Z88.6 Allergy status to analgesic agent; Z88.8 Allergy status to other drugs, medicaments and biological substances; Z68.30 Body mass index [BMI] 30.0-30.9, adult
CPT/HCPCS: 36415; 80048; 85025; 86140; 99284; A9270-GY

== ENCOUNTER 2021-08-20 22:35 | Emergency (ER) | payer BC ==
[2021-08-20] MEDS ORDERED: Sodium Chloride 0.9% 10 ML Syringe FLUSH PRN (22:43)
[2021-08-20] MEDS ORDERED: Nitroglycerin 0.4 MG Tab.SL SL ONE (22:45)
[2021-08-20 23:06] LABS: PTT,PARTIAL THROMBOPLSTIN TIME 28.8 SEC (23.6-29.8)
[2021-08-20 23:12] LABS: CHLORIDE,CL 108 mmol/L (98-107); SODIUM,NA 145 mmol/L (136-145)
[2021-08-20 23:16] LABS: ANION GAP 14.5 meq/L (7-15)
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
[2021-08-21 02:09] VITALS: BP 145/69; PULSE 76
== END 2021-08-20 23:32 | disposition home or self-care (01) ==
LOC: LL.ED 22:35
DX: R07.89 Other chest pain (principal); I25.10 Atherosclerotic heart disease of native coronary artery without angina pectoris; J44.9 Chronic obstructive pulmonary disease, unspecified; Z88.2 Allergy status to sulfonamides; Z88.5 Allergy status to narcotic agent; Z91.018 Allergy to other foods; Z88.8 Allergy status to other drugs, medicaments and biological substances
CPT/HCPCS: 36415; 71045; 80053; 83735; 83880; 84100; 84484; 85025; 85379; 85610; 85730; 86140; 93005; 99285; A9270; 93010; 99284

== ENCOUNTER 2021-09-17 19:08 | Emergency (ER) | payer BC ==
[2021-09-17 19:16] VITALS: BP 173/90; PULSE 72
== END 2021-09-17 20:25 | disposition home or self-care (01) ==
LOC: LL.ED 19:08
DX: S61.213A Laceration without foreign body of left middle finger without damage to nail, initial encounter (principal); I25.10 Atherosclerotic heart disease of native coronary artery without angina pectoris; J44.9 Chronic obstructive pulmonary disease, unspecified; E66.9 Obesity, unspecified; Z68.34 Body mass index [BMI] 34.0-34.9, adult; Z88.6 Allergy status to analgesic agent; Z88.5 Allergy status to narcotic agent; Z91.018 Allergy to other foods; Z88.2 Allergy status to sulfonamides; Z88.8 Allergy status to other drugs, medicaments and biological substances; Z79.899 Other long term (current) drug therapy; W26.0XXA Contact with knife, initial encounter
CPT/HCPCS: 12001; 99282-25; 99283

== ENCOUNTER 2022-07-29 18:49 | Emergency (ER) | payer BC ==
[2022-07-29 19:43] LABS: ANION GAP 7.8 meq/L (7-15); CHLORIDE,CL 103 mmol/L (98-107); SODIUM,NA 140 mmol/L (136-145)
[2022-07-29 19:45] LABS: ESTIMATED GFR 59 mL/min (>=60)
[2022-07-29 19:48] VITALS: PULSE 74
[2022-07-29 20:26] LABS: CORONAVIRUS COVID-19 NAA NEGATIVE (NEGATIVE); RESPIRATORY SYNCYTIAL VIR NAA NEGATIVE (NEGATIVE)
[2022-07-29] MEDS: Iopamidol 612 MG/ML 100 ML Bottle ONE (21:11)
[2022-07-29] MEDS: Sodium Chloride 0.9% 1,000 ML IV ONE (21:32)
[2022-07-29] MEDS ORDERED: Amoxicillin/Clavulanate K 875-125 MG Tab PO ONE (22:32)
[2022-07-30 04:03] VITALS: BP 135/72
== END 2022-07-29 22:35 | disposition home or self-care (01) ==
LOC: LL.ED 18:49
DX: K57.32 Diverticulitis of large intestine without perforation or abscess without bleeding (principal); I25.10 Atherosclerotic heart disease of native coronary artery without angina pectoris; J44.9 Chronic obstructive pulmonary disease, unspecified; K21.9 Gastro-esophageal reflux disease without esophagitis; M19.90 Unspecified osteoarthritis, unspecified site; E66.9 Obesity, unspecified; Z88.2 Allergy status to sulfonamides; Z88.8 Allergy status to other drugs, medicaments and biological substances; Z88.5 Allergy status to narcotic agent; Z88.6 Allergy status to analgesic agent; Z91.018 Allergy to other foods; Z79.899 Other long term (current) drug therapy; Z20.822 Contact with and (suspected) exposure to COVID-19
CPT/HCPCS: 0241U; 36415; 74177; 80053; 81001; 83605; 83735; 85025; 96360; 99284; J7030; Q9967

== ENCOUNTER 2024-02-13 17:48 | Emergency (ER) | payer BC ==
[2024-02-13 17:51] VITALS: BP 142/80; PULSE 89
== END 2024-02-13 19:01 | disposition home or self-care (01) ==
LOC: LL.ED 17:48
DX: S93.401A Sprain of unspecified ligament of right ankle, initial encounter (principal); K21.9 Gastro-esophageal reflux disease without esophagitis; E66.9 Obesity, unspecified; Z90.49 Acquired absence of other specified parts of digestive tract; Z90.710 Acquired absence of both cervix and uterus; Z79.899 Other long term (current) drug therapy; Z88.8 Allergy status to other drugs, medicaments and biological substances; Z91.018 Allergy to other foods; Z88.2 Allergy status to sulfonamides; Z88.5 Allergy status to narcotic agent; W19.XXXA Unspecified fall, initial encounter
CPT/HCPCS: 73590-RT; 99283

== ENCOUNTER 2024-09-20 21:14 | Emergency (ER) | payer BC ==
[2024-09-20 21:31] VITALS: BP 156/97; PULSE 97
[2024-09-20 21:47] LABS: BASOPHILS ABSOLUTE AUTO 0.05 K/uL (0.00-0.20); BASOPHILS PERCENT AUTO 0.5 % (0.0-2.0); EOSINOPHILS ABSOLUTE AUTO 0.32 K/uL (0.00-0.50); EOSINOPHILS PERCENT AUTO 2.9 % (0.0-5.0); HEMATOCRIT 43.5 % (34.0-46.0); HEMOGLOBIN 15.4 g/dL (11.7-15.5); IMMATURE GRAN ABSOLUTE AUTO 0.04 10^3/uL (0.00-0.04); IMMATURE GRAN PERCENT AUTO 0.4 % (0.0-0.4); LYMPHOCYTES ABSOLUTE AUTO 2.39 K/uL (0.50-3.50); LYMPHOCYTES PERCENT AUTO 21.7 % (10.0-50.0); MEAN CORPUSCULAR HEMOGLOBIN 30.9 pg (28.2-33.3); MEAN CORPUSCULAR HGB CONC 35.4 g/dL (31.7-36.0); MEAN CORPUSCULAR VOLUME 87.2 fL (84.0-98.0); MONOCYTES ABSOLUTE AUTO 1.04 K/uL (0.00-1.00); MONOCYTES PERCENT AUTO 9.5 % (2.0-14.0); NEUTROPHILS ABSOLUTE AUTO 7.15 K/uL (1.40-7.00); PLATELET COUNT,PLT 242 K/uL (150-350); RED BLOOD CELL COUNT 4.99 M/uL (3.77-5.09); RED CELL DISTRIBUTION WIDTH 13.3 % (11.2-14.1)
== END 2024-09-20 22:30 | disposition home or self-care (01) ==
LOC: LL.ED 21:14
DX: M79.652 Pain in left thigh (principal); J44.9 Chronic obstructive pulmonary disease, unspecified; Z88.5 Allergy status to narcotic agent; Z88.6 Allergy status to analgesic agent; Z88.8 Allergy status to other drugs, medicaments and biological substances; Z91.018 Allergy to other foods; Z88.2 Allergy status to sulfonamides; Z79.51 Long term (current) use of inhaled steroids; Z53.33 Arthroscopic surgical procedure converted to open procedure; Z79.899 Other long term (current) drug therapy
CPT/HCPCS: 36415; 85025; 85379; 99283; 99284

== ENCOUNTER 2024-10-29 21:35 | Emergency (ER) | payer BC ==
[2024-10-29] MEDS: Albuterol/Ipratropium 3.0-0.5 MG/3 ML Neb Soln NEB ONE (21:53)
[2024-10-29 22:16] VITALS: BP 157/90; PULSE 82
[2024-10-29] MEDS ORDERED: Sodium Chloride 0.9% 10 ML Syringe FLUSH PRN (22:16)
[2024-10-29] MEDS: Iopamidol 755 Mg/ML 100 ML Bottle IVPUSH ONE (22:47)
== END 2024-10-29 22:10 | disposition home or self-care (01) ==
LOC: LL.ED 21:35
DX: R06.02 Shortness of breath (principal); I25.10 Atherosclerotic heart disease of native coronary artery without angina pectoris; K21.9 Gastro-esophageal reflux disease without esophagitis; E66.9 Obesity, unspecified; Z90.49 Acquired absence of other specified parts of digestive tract; Z90.710 Acquired absence of both cervix and uterus; Z79.899 Other long term (current) drug therapy; Z88.5 Allergy status to narcotic agent; Z88.2 Allergy status to sulfonamides; Z91.018 Allergy to other foods; Z88.8 Allergy status to other drugs, medicaments and biological substances
CPT/HCPCS: 71275; 99285; A9270-GY; Q9967